=== PATIENT | male | born 1995 | race Caucasian/White ===

== ENCOUNTER 2018-11-08 20:54 | Emergency (ER) | payer MEDICAID, OTHER ==
[~2018-11-08] VITALS: Ht 177.8 cm; Wt 93.0 kg
[2018-11-08] MEDS ORDERED: NS IV 1000 ML 1,000 ML IV SCH ×2 (21:15→23:15)
[2018-11-08] MEDS ORDERED: LORazepam INJ 2 MG/ML (ATIVAN) VIAL IVP ONE ×2 (21:15→23:30)
[2018-11-08 21:16] LABS: HEMATOCRIT 41 % (40-54); HEMOGLOBIN 14.1 G/DL (13.3-17.7); MEAN CORPUSCULAR HEMOGLOBIN 29 PG (25-34); MEAN CORPUSCULAR HGB CONC 34 G/DL (32-36); MEAN CORPUSCULAR VOLUME 85 FL (80-99); PLATELET COUNT 210 10^3/uL (130-400); RED CELL DISTRIBUTION WIDTH 11.9 % (10.0-14.5); WHITE BLOOD COUNT 5.4 10^3/uL (4.3-11.0)
[2018-11-08 21:17] LABS: BASOPHILS % (AUTO) 1 % (0-10); EOSINOPHILS # (AUTO) 0.2 10^3/uL (0.0-0.3); EOSINOPHILS % (AUTO) 4 % (0-10); LYMPHOCYTES # (AUTO) 1.3 X 10^3 (1.0-4.0); LYMPHOCYTES % (AUTO) 24 % (12-44); MEAN PLATELET VOLUME 9.3 FL (7.4-10.4); MONOCYTES # (AUTO) 0.4 X 10^3 (0.0-1.0); MONOCYTES % (AUTO) 8 % (0-12); NEUTROPHILS # (AUTO) 3.5 X 10^3 (1.8-7.8); NEUTROPHILS % (AUTO) 64 % (42-75)
--- NOTE | 2018-11-08 21:22 | NUR ---
pt talking with ed staff currently, pt knows name and birthdate, states he feels fine.
[2018-11-08 21:32] LABS: BUN/CREATININE RATIO 12; CALCIUM 9.2 MG/DL (8.5-10.1); CARBON DIOXIDE 24 MMOL/L (21-32); CHLORIDE 93 MMOL/L (98-107); CREATININE SERUM 0.75 MG/DL (0.60-1.30); GFR ESTIMATED > 60; GLUCOSE 129 MG/DL (70-105); POTASSIUM 4.3 MMOL/L (3.6-5.0); SODIUM 135 MMOL/L (135-145)
--- NOTE | 2018-11-08 21:46 | ED Neurological Problem ---
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 pt post ictal upon arrival no loss of bowel or bladder noted Nursing Sepsis Screen: No Definite Risk Source: patient, family Exam Limitations: clinical condition History of Present Illness Date Seen by Provider: November 08, 2018 Time Seen by Provider: 21:00 Initial Comments Patient is a 22-year-old male with history of autoimmune seizure disorder currently taking Trileptal, Lamictal and receiving immunotherapy infusions who presents with multiple seizure episodes earlier today. Last seizure started 12 minutes prior to the arrival. History is obtained from the patient's father. Patient and father visiting from out of state and are staying with friends locally. They've been holding the past several days. Patient has had multiple ticklike seizures with lipsmacking today. Patient typically has one to 2 seizures a month but has had proximate 5 seizures over the past 5 hours lasting 5-10 minutes followed by confusion and postictal period. Patient is alert but nonverbal on ED arrival. He is able to follow basic commands. He is not currently actively seizing. No reported triggers or medications changes. No other acute symptoms or complaints. Patient is visiting from [place] and neurologist practices at the [facility] in [place]. Timing/Duration: 4-6 hours Severity: moderate Associated Symptoms: confusion, loss of consciousness, seizures Allergies and Home Medications Allergies Coded Allergies: No Known Drug Allergies (Unverified , 11/08/18) Patient Home Medication List Home Medication List Reviewed: Yes Review of Systems Review of Systems Constitutional: no symptoms reported, chills Eyes: No Symptoms Reported Ears, Nose, Mouth, Throat: no symptoms reported Respiratory: no symptoms reported Cardiovascular: no symptoms reported Gastrointestinal: no symptoms reported Genitourinary: no symptoms reported Musculoskeletal: no symptoms reported Skin: no symptoms reported Psychiatric/Neurological: See HPI, Cognitive Dysfunction, [place] Seizures; Denies Tonic Clonic Seizures Endocrine: No Symptoms Reported Hematologic/Lymphatic: No Symptoms Reported Past Owpcths-[id number]-Npkmsa Hx Past Med/Social Hx: Reviewed Nursing Past Med/Soc Hx Patient Social History Alcohol Use: Denies Use Recreational Drug Use: No Smoking Status: Never a Smoker 2nd Hand Smoke Exposure: No Recent Foreign Travel: No Contact w/Someone Who Travel: No Recent Infectious Disease Expo: No Recent Hopitalizations: No Physical Abuse: No Sexual Abuse: No Mistreated: No Fear: No Seasonal Allergies Seasonal Allergies: No Past Medical History Surgeries: Yes (lung bx) Respiratory: No Cardiac: No Neurological: Yes Seizure Disorder Genitourinary: No Gastrointestinal: No Musculoskeletal: No Endocrine: No HEENT: No Cancer: No Psychosocial: No Integumentary: No Blood Disorders: No Physical Exam Vital Signs Vital Signs - First Documented 11/08/18 21:11 Temp 98.4 Pulse 94 Resp 22 B/P (MAP) 101/73 (82) Pulse Ox 95 O2 Delivery Room Air Capillary Refill : Less Than 3 Seconds Height, Weight, BMI Height: 5'10.00" Weight: 205lbs. oz. 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, no motor/sensory deficits, alert, oriented x 3 Crainal Nerves: PERRL Motor/Sensory: no motor deficit, no sensory deficit Skin: normal color Progress/Results/Core Measures Results/Orders Lab Results Laboratory Tests Test 11/08/18 21:03 Range/Units White Blood Count 5.4 4.3-11.0 10^3/uL Red Blood Count 4.85 4.35-5.85 10^6/uL Hemoglobin 14.1 13.3-17.7 G/DL Hematocrit 41 40-54 % Mean Corpuscular Volume 85 80-99 FL Mean Corpuscular Hemoglobin 29 25-34 PG Mean Corpuscular Hemoglobin Concent 34 32-36 G/DL Red Cell Distribution Width 11.9 10.0-14.5 % Platelet Count 210 130-400 10^3/uL Mean Platelet Volume 9.3 7.4-10.4 FL Neutrophils (%) (Auto) 64 42-75 % Lymphocytes (%) (Auto) 24 12-44 % Monocytes (%) (Auto) 8 0-12 % Eosinophils (%) (Auto) 4 0-10 % Basophils (%) (Auto) 1 0-10 % Neutrophils # (Auto) 3.5 1.8-7.8 X 10^3 Lymphocytes # (Auto) 1.3 1.0-4.0 X 10^3 Monocytes # (Auto) 0.4 0.0-1.0 X 10^3 Eosinophils # (Auto) 0.2 0.0-0.3 10^3/uL Basophils # (Auto) 0.0 0.0-0.1 10^3/uL Sodium Level 135 135-145 MMOL/L Potassium Level 4.3 3.6-5.0 MMOL/L Chloride Level 93 L 98-107 MMOL/L Carbon Dioxide Level 24 21-32 MMOL/L Anion Gap 18 H 5-14 MMOL/L Blood Urea Nitrogen 9 7-18 MG/DL Creatinine 0.75 0.60-1.30 MG/DL Estimat Glomerular Filtration Rate > 60 BUN/Creatinine Ratio 12 Glucose Level 129 H 70-105 MG/DL Calcium Level 9.2 8.5-10.1 MG/DL My Orders Orders - SELAM CONNOLLY DO Cbc With Automated Diff (11/08/18 21:01) Basic Metabolic Panel (11/08/18 21:01) Lorazepam Injection (Ativan Injection) (11/08/18 21:15) Ns Iv 1000 Ml (Sodium Chloride 0.9%) (11/08/18 21:15) Creatine Kinase (11/08/18 21:01) Ketorolac Injection (Toradol Injection) (11/08/18 22:45) Prochlorperazine Injection (Compazine In (11/08/18 22:45) Fentanyl Injection (Sublimaze Injection (11/08/18 22:45) Ketorolac Injection (Toradol Injection) (11/08/18 22:43) Ns Iv 1000 Ml (Sodium Chloride 0.9%) (11/08/18 23:15) Medications Given in ED Current Medications Medications Dose Ordered Sig/Elva Route Start Time Stop Time Status Last Admin Dose Admin Fentanyl Citrate 50 mcg ONCE ONCE IVP 11/08/18 22:45 11/08/18 22:47 DC 11/08/18 22:50 50 MCG Ketorolac Tromethamine 15 mg ONCE ONCE IVP 11/08/18 22:45 11/08/18 22:47 DC 11/08/18 22:50 15 MG Lorazepam 2 mg ONCE ONCE IVP 11/08/18 21:15 11/08/18 21:16 DC 11/08/18 21:24 2 MG Prochlorperazine Edisylate 10 mg ONCE ONCE IV 11/08/18 22:45 11/08/18 22:47 DC 11/08/18 22:50 10 MG Vital Signs/I&O 11/08/18 21:11 Temp 98.4 Pulse 94 Resp 22 B/P (MAP) 101/73 (82) Pulse Ox 95 O2 Delivery Room Air Blood Pressure Mean: 82 Departure Communication (Admissions) Recurrent seizures with postictal state and headache. Patient given IV fluids, Ativan on ED arrival. No recurrence of seizure or focal neurologic deficits. Headache distress. Patient resting comfortably and sleeping throughout most of ED visit. Will discharge with prescription of Ativan instructions to continue home medications with PCP/neurology follow-up. Return reviewed Impression Primary Impression: Seizure disorder Disposition: 01 HOME, SELF-CARE Condition: Stable Departure-Patient Inst. Patient Instructions: Seizures, Adult (DC) Add. Discharge Instructions: Please continue home seizure medications and take ativan every 8 hours if seizures recur. Contact your local PCP and/or neurologist upon returning home for further directions. Return to the closest ED if worsening symptoms. All discharge instructions reviewed with patient and/or family. Voiced understanding. Scripts Lorazepam (Ativan) 2 Mg Tablet 2 MG PO Q8H PRN for SEIZURE ACTIVITY for 4 Days, #12 TAB Prov: SELAM CONNOLLY DO 11/08/18 SELAM CONNOLLY DO November 08, 2018 21:46
--- NOTE | 2018-11-08 21:53 | NUR ---
pt a/o x 4, talking with father and staff, states he has a "bad H/a".
--- NOTE | 2018-11-08 22:29 | NUR ---
pt up to use urinal, pt slightly unsteady on feet, used urinal with assist of 1.
[2018-11-08] MEDS ORDERED: KETOROLAC 30 MG/ML VIAL ONE (22:43)
[2018-11-08] MEDS ORDERED: KETOROLAC 15 MG/ML VIAL IVP ONE (22:45)
[2018-11-08] MEDS ORDERED: fentaNYL INJECTION 100 MCG/2 ML AMP IVP ONE (22:45)
[2018-11-08] MEDS ORDERED: PROCHLORPERAZINE 10 MG/2ML INJ (COMPAZINE) IV ONE (22:45)
[2018-11-08] MEDS ORDERED: LORA-407 PO (23:15)
[2018-11-08] MEDS ORDERED: LORazepam 0.5 MG (ATIVAN) TABLET PO STA (23:16)
--- NOTE | 2018-11-09 00:30 | NUR ---
pt up to use urinal, voided 700 ml clear yellow urine, pt steady on feet able to stand without assistance.
[2018-11-09 01:03] VITALS: BP 98/46
[2018-11-09 08:34] LABS: CREATINE KINASE 55 U/L (30-200)
== END 2018-11-09 01:03 | disposition home or self-care (01) ==
LOC: EDBD 20:58 → ER FS 20:58
DX: G40.909 Epilepsy, unspecified, not intractable, without status epilepticus (principal); Z92.29 Personal history of other drug therapy
CPT/HCPCS: 36415; 80048; 82550; 85025; 96361; 96374; 96375; 96376; 99283